=== PATIENT | female | born 1975 | race Caucasian/White ===

== ENCOUNTER 2018-05-02 12:50 | Observation (INO) | payer BC ==
--- NOTE | 2018-05-02 12:55 | EDM.PDOC ---
ED HPI GENERAL MEDICAL PROBLEM - General Chief Complaint: General Stated Complaint: CHEST PRESSURE Time Seen by Provider: 05/02/18 12:50 Source of Information: Reports: Patient, EMS, EMS Notes Reviewed. Denies: Old Records (No [facility] records available) History Limitations: Reports: No Limitations - History of Present Illness INITIAL COMMENTS - FREE TEXT/NARRATIVE: The patient was brought to the emergency room via basic ambulance transfer with the supervisor anodizing giving the patient 4 baby aspirin chew and swallow and applying O2 therapy. EKG was conducted in route, however multiple artifacts. The patient does not have any previous history of heart disease or cardiac workup. 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 The patient has been trying to lose weight and has been taking multiple OTC supplements. She has been in an exercise program for the last couple of months and did feel somewhat fatigued yesterday. No recent history of abdominal pain, heartburn, nausea, diarrhea, melena, gross hematochezia, or any food intolerance , including fatty foods, etc.. She denies any gross hematuria, colic, or other UTI symptoms. The patient also denies any recent fever, cough, wheezing, dyspnea , etc.. No history of recent headaches, visual changes, diplopia, change in mental status, or other change in neurological status. Her chest pain has improved to 6/10 at time of arrival to our facility. Onset: Today, Sudden Onset Date: 05/02/18 Onset Time: 11:30 - Related Data Allergies Allergy/AdvReac Type Severity Reaction Status Date / Time adhesive tape Allergy Rash Verified 05/02/18 13:43 morphine Allergy Itching Verified 05/02/18 13:43 Sulfa (Sulfonamide Allergy Nausea and Verified 05/02/18 13:02 Antibiotics) Vomiting venlafaxine [From Effexor] Allergy Nausea Verified 05/02/18 13:43 Home Meds: Home Meds Aspirin [Halfprin] 81 mg PO DAILY 05/02/18 [History] Cetirizine HCl [Zyrtec] 10 mg PO DAILY 05/02/18 [History] Cholecalciferol (Vitamin D3) [Vitamin D3] 1,000 unit PO DAILY 05/02/18 [History] Chrom Leatha/Brindal Arreguin [Garcinia Cambogia Tablet] 1 each PO BID 05/02/18 [ History] Sofiya [place]/Linoleic/Gamoleni [Evening [place] 1,000 mg Sftg] 1,000 mg PO DAILY 05/02/18 [History] Nonformulary 2 scoop PO DAILY 05/02/18 [History] Nonformulary Immune Booster 2 cap PO DAILY 05/02/18 [History] Polyethylene Glycol 3350 [MiraLAX] 17 gm PO DAILY 05/02/18 [History] Past Medical History HEENT History: Reports: Allergic Rhinitis, Impaired Vision, Other (See Below). Denies: Cataract, Glaucoma, Hard of Hearing, Macular Degeneration, Retinal Detachment Other HEENT History: Patient wears glasses. Seasonal allergies. Cardiovascular History: Reports: None. Denies: Afib, Aneurysm, Arrhythmia, Blood Clots/VTE/DVT, CAD, Heart Failure, Heart Murmur, High Cholesterol, Hypertension, PVD, Syncope Respiratory History: Reports: Bronchitis, Recurrent, Intubation, Previous. Denies: Asthma, COPD, PE, Pneumothorax, Sleep Apnea, TB Gastrointestinal History: Reports: Cholelithiasis, Chronic Constipation, GERD. Denies: Celiac Disease, Chronic Diarrhea, Colon Polyp, Diverticulosis, Fecal Incontinence, Gastritis, GI Bleed, Hepatitis, Inflammatory Bowel Disease, Irritable Bowel Syndrome, Jaundice, Pancreatitis, PUD Genitourinary History: Reports: None. Denies: Acute Renal Failure, Chronic Renal Insuffiency, Dialysis, Renal Calculus, Retention, Urinary, STD, Urinary Incontinence, UTI, Recurrent AWAKE OVERNIGHT MONITOR History: Reports: Polycystic Ovaries, , Spontaneous . Denies: Dysfunctional Uterine Bleeding, Endometriosis, Fibroids, Prolapsed Uterus : 5 Para: 4 LMP (Approximate): Other (See Below) Other OB/BYN History: Surgical menopause as below. First trimester SAB with D&C as below. Full term LTCS 2 with 2 deliveries at about 35 weeks gestation by with these events having respiratory problems and NICU care without other complications during pregnancies or deliveries. Musculoskeletal History: Reports: None. Denies: Amputation, Arthritis, Back Pain, Chronic, Fracture, Gout, Neck Pain, Chronic, Osteoarthritis, RA, SLE Neurological History: Reports: Concussion, Headaches, Chronic, Head Trauma, Other (See Below). Denies: Cerebral Aneurysms, CVA, Migraines, MS, Neuropathy, Peripheral, Parkinson's, Seizure, TIA Other Neuro History: Head concussion in about 2012 Psychiatric History: Reports: Anxiety, Depression, Psych Hospitalization(s), Suicidal Ideation (Psychiatric hospitalization for suicidal ideation at about age 29). Denies: Abuse, Victim of, ADD, ADHD, Addiction, PTSD, Suicide Attempt Endocrine/Metabolic History: Reports: Obesity/BMI 30+. Denies: Diabetes, Gestational, Diabetes, Type I, Diabetes, Type II, Diabetes Mellitus, Type 3c, IDDM Hematologic History: Reports: None. Denies: Anemia, Blood Transfusion(s), Iron Deficiency Immunologic History: Reports: None. Denies: AIDS, HIV, SLE Oncologic (Cancer) History: Reports: None. Denies: Basal Cell Carcinoma, Cervix , Hodgkin's Lymphoma, Leukemia, Lymphoma, Malignant Melanoma, Non-Hodgkin's Lymphoma, Ovarian, Squamous Cell Carcinoma, Uterine Dermatologic History: Reports: None, Eczema. Denies: Psoriasis - Infectious Disease History Infectious Disease History: Reports: Chicken Pox. Denies: C-Difficile, Measles , Meningitis, Mononucleosis, MRSA, Mumps, Pertussis (Whooping Cough), Rheumatic Fever, Rubella, Scarlet Fever, Shingles, TB, VRE - Past Surgical History Head Surgeries/Procedures: Reports: None HEENT Surgical History: Reports: Adenoidectomy, Naso-Sinus Surgery, Oral Surgery , Tonsillectomy, Other (See Below). Denies: Cataract Surgery, Eye Surgery, Laser Surgery, LASIK, Myringotomy w Tube(s) Other HEENT Surgeries/Procedures: Tonsillectomy at age 19. Septoplasty and sinus surgery in her mid 20s. [place] teeth extraction 4 at age 17. Cardiovascular Surgical History: Reports: None. Denies: Varicose Respiratory Surgical History: Reports: None. Denies: Thoracentesis GI Surgical History: Reports: Cholecystectomy, Colonoscopy, Hernia, Abdominal, Other (See Below). Denies: Appendectomy, EGD, Hernia, Inguinal, Hernia Repair/ Other, Polypectomy Other GI Surgeries/Procedures: Colonoscopy in August 2017. Laparoscopic cholecystectomy in August 2001. Umbilical hernia repair with hysterectomy in October 2006 Female Surgical History: Reports: Breast Biopsy, Breast Reconstruction, Section, D&C, Hysterectomy, Salpingo-Oophorectomy, Other (See Below). Denies: Tubal Ligation Other Female Surgeries/Procedures: LTCS 4 as above. Neurectomy with right- sided salpingo-oophorectomy in October 2006 secondary to uterine adhesions and bleeding from previous C-sections. Subsequent left-sided oophorectomy in about April 2007. D&C secondary to SAB as above. Bilateral breast reduction in January 2013 Endocrine Surgical History: Reports: None. Denies: Thyroid Biopsy Neurological Surgical History: Reports: None. Denies: C-Spine, Discectomy, Intracranial, Laminectomy, Lumbar Spine, Sacral Spine, Spinal Fusion, Thoracic Spine, Vertebroplasty Musculoskeletal Surgical History: Reports: None. Denies: Arthroscopic Procedure , Carpal Tunnel, Ganglion Cyst, Joint Replacement, ORIF Oncologic Surgical History: Reports: None Dermatological Surgical History: Reports: None - Past Imaging History Past Imaging History: Reports: Mammogram (Last in about 2004). Denies: Cardiac Echo, Stress Testing Social & Family History - Family History HEENT: Reports: Glaucoma, Other (See Below). Denies: Macular Degeneration, Retinal Detachment Other HEENT Family History: Maternal grandmother with glaucoma and macular degeneration in mother. Cardiac: Reports: Bypass, CAD, High Cholesterol, Hypertension, MA, Syncope, Other (See Below). Denies: Afib, Aneurysm, Arrhythmia, Blood Clots/VTE/DVT, Heart Failure, PVD/COD Other Cardiac Family History: Father with recurrent MIs initially in his 30s with multiple PTCA/stents and CABG additional history of hypertension and hyperlipidemia. Brother with recurrent syncope. Respiratory: Reports: COPD, Other (See Below). Denies: PE, Pneumothorax, Sleep Apnea Other Respiratory Family Hisory: Father with fatal COPD in his 60s with history of tobacco use. GI: Reports: None. Denies: Celiac Disease, Cholelithiasis, Colon Polyps, GERD, GI bleed, Inflammatory Bowel Disease, Irritable Bowel Syndrome, PUD : Reports: None. Denies: Dialysis, Renal Calculus, Renal Disease/ Insufficiency OBGYN: Reports: None. Denies: Endometriosis, Recurrent Spontaneous Musculoskeletal: Reports: None. Denies: Arthritis, Gout, Osteoarthritis, RA, SLE Neurological: Denies: Alzheimers Disease, Cerebral Aneurysms, CVA, Dementia, Migraines, MS, Neuropathy, Diabetic, Parkinson's, Seizure, TIA Endocrine/Metabolic: Reports: Diabetes, type II, Other (See Below). Denies: Diabetes, Type I, Diabetes Mellitus, Type 3c, Hypothyroidism, IDDM Other Endocrine/Metabolic Family History: Maternal and paternal grandmothers with AODM Hematologic: Reports: None. Denies: Anemia, SLE, Transfusion Reaction Immunologic: Reports: None. Denies: AIDS, HIV, SLE Dermatologic: Reports: Eczema, Other (See Below). Denies: Psoriasis Other Dermatologic Family History: Brother with eczema Oncologic: Reports: Bladder, Breast, Metastatic, Skin, Other (See Below). Denies: Cervix, Colon, Hodgkin's Lymphoma, Leukemia, Non-Hodgkin's Lymphoma, Ovarian, Prostate, Uterine Other Oncologic Family History: Maternal grandmother with melanoma, breast cancer, and bladder cancer with metastases fatal in her 80s. Maternal aunt breast cancer in her 40s and mother with breast cancer in her 50s. Father with bladder cancer in his 50s. - Tobacco Use Smoking Status *Q: Former Smoker Tobacco Use Within Last Twelve Months: No Years of Tobacco use: 10 Packs/Tins Daily: 1 Packs/Tins Daily Comment: She smoked 1-1 1/2 packs of cigarettes per day between ages 31 and 41 with no use since 06/18/17 Used Tobacco, but Quit: Yes Smoking Cessation Information Provided To Patient: No Smoking Cessation Information Given Comment: chews tobacco Second Hand Smoke Exposure: Yes Second Hand Smoke Education Provided: Yes - Caffeine Use Caffeine Use: Reports: Coffee (1-2 cups per day). Denies: Energy Drinks, Soda, Tea - Alcohol Use Alcohol Use History: Yes Days Per Week of Alcohol Use: 0 Number of Drinks Per Day: 1 Number of Drinks Per Day Comment: Usually one glass of wine on a monthly basis. No previous DWIs, problems with alcohol abuse, etc. 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 ED EXAM, GENERAL - Physical Exam Exam: See Below Exam Limited By: No Limitations General Appearance: Alert, WD/WN, No Apparent Distress, Anxious (Moderate) Eye Exam: Bilateral Eye: EOMI, Normal Inspection (No nystagmus), PERRL Ears: Normal External Exam, Normal Canal, Hearing Grossly Normal, Normal TMs Nose: Normal Inspection, Normal Mucosa, No Blood Throat/Mouth: Normal Inspection, Normal Lips, Normal Teeth, Normal Gums, Normal Oropharynx, Normal Voice, No Airway Compromise. No: Dysphagia, Perioral Cyanosis Head: Atraumatic, Normocephalic. No: Facial Swelling, Facial Tenderness, Sinus Tenderness Neck: Normal Inspection, Supple, Non-Tender, Full Range of Motion. No: Carotid Bruit, Lymphadenopathy (L), Lymphadenopathy (R), Thyromegaly Respiratory/Chest: No Respiratory Distress, Lungs Clear, Normal Breath Sounds, No Accessory Muscle Use, Chest Non-Tender. No: Pleural Rub, Retractions Cardiovascular: Normal Peripheral Pulses, No Edema, No Gallop, No JVD, No Murmur , No Rub, Bradycardia (Mild to moderate, regular rhythm). No: Gallop/S3, Gallop /S4, Friction Rub Peripheral Pulses: 4+: Radial (L), Radial (R), Dorsalis Pedis (L), Dorsalis Pedis (R) GI/Abdominal: Normal Bowel Sounds, Soft, Non-Tender, No Organomegaly, No Distention, No Abnormal Bruit, No Mass, Pelvis Stable, Other (obese). No: Guarding (Female) Exam: Deferred Rectal (Female) Exam: Deferred Back Exam: Normal Inspection, Full Range of Motion. No: CVA Tenderness (L), CVA Tenderness (R), Muscle Spasm Extremities: Normal Inspection, Normal Range of Motion, Non-Tender, No Pedal Edema, Normal Capillary Refill. No: Noe's Sign Neurological: Alert, Oriented, CN II-XII Intact, Normal Cognition, Normal Gait, Normal Reflexes (Negative Babinski's), No Motor/Sensory Deficits Psychiatric: Anxious (Moderate), Depressed Mood (Mild; Adequate eye contact) Skin Exam: Warm, Dry, Intact, Normal Color, No Rash, Stud(s) (Bilateral auricular, left nasal). No: Diaphoretic, Ecchymosis, Petechiae, Wound/Incision Lymphatic: No Adenopathy EKG INTERPRETATION EKG Date: 05/02/18 Time: 12:49 Rhythm: Other (Sinus bradycardia) Rate (Beats/Min): 52 [place]: Normal (Left cardiac axis) P-Wave: Present (Mild diffuse biphasic P waves with extreme poor R-wave progression in the anterior leads) QRS: Wide (QRS interval 0.10 seconds representing repolarization changes with T- wave inversion in leads 3 and V1) ST-T: Normal QT: Normal MO/PQ Interval: 0.16 seconds Comparison: NA - No Prior EKG EKG Interpretation Comments: 1. No acute ischemic changes 2. Repolarization changes Course - Vital Signs Last Recorded V/S: Last Vital Signs Temp 37.3 C 05/02/18 12:50 Pulse 53 L 05/02/18 14:10 Resp 13 05/02/18 14:10 BP 105/60 05/02/18 14:10 Pulse Ox 100 05/02/18 14:10 Vital Signs - 24 hr 05/02/18 05/02/18 05/02/18 12:50 12:55 12:56 Temperature [ 37.3 C Temporal] Pulse, 55 L 55 L Peripheral [ Pulse Oximetry] Respiratory 17 16 Rate Blood Pressure 109/78 105/68 [Left Upper Arm ] O2 Sat by Pulse 98 98 Oximetry O2 Sat by Pulse 100 Oximetry [ Nasal Cannula] 05/02/18 05/02/18 05/02/18 13:10 13:25 13:40 Temperature [ Temporal] Pulse, 52 L 52 L 51 L Peripheral [ Pulse Oximetry] Respiratory 15 16 15 Rate Blood Pressure 107/75 99/54 L 99/62 [Left Upper Arm ] O2 Sat by Pulse 100 99 100 Oximetry O2 Sat by Pulse Oximetry [ Nasal Cannula] 05/02/18 05/02/18 13:55 14:10 Temperature [ Temporal] Pulse, 57 L 53 L Peripheral [ Pulse Oximetry] Respiratory 14 13 Rate Blood Pressure 105/66 105/60 [Left Upper Arm ] O2 Sat by Pulse 100 100 Oximetry O2 Sat by Pulse Oximetry [ Nasal Cannula] - Orders/Labs/Meds Orders: Active Orders 24 hr Category Date Time Status Cardiac Monitoring [RC] . DIRECTED Care 05/02/18 12:56 Active EKG Documentation Completion [RC] ASDIRECTED Care 05/02/18 12:56 Active Oxygen Therapy, ED [RC] CONTINUOUS Care 05/02/18 12:56 Active Peripheral IV Care [RC] . DIRECTED Care 05/02/18 12:56 Active Pulse Oximetry [RC] CONTINUOUS Care 05/02/18 12:56 Active Up With Assistance [RC] PFP Care 05/02/18 12:56 Active Vital Signs [RC] PFP Care 05/02/18 12:56 Active Nothing per Oral Now Diet [DIET] Diet 05/02/18 Breakfast Active Chest 1V Frontal [CR] Stat Exams 05/02/18 12:56 Taken Sodium Chloride 0.9% [Saline Flush] Med 05/02/18 12:56 Active 10 ml FLUSH ASDIRECTED PRN Obtain Past Medical Record [OM.PC] Urgent Oth 05/02/18 12:56 Active Peripheral IV Insertion Adult [OM.PC] Stat Oth 05/02/18 12:56 Ordered Resuscitation Status Stat Resus Stat 05/02/18 12:56 Ordered Medication Orders Sodium Chloride (Saline Flush) 10 ml FLUSH ASDIRECTED PRN PRN Reason: Keep Vein Open Last Admin: 05/02/18 13:17 Dose: 10 ml Labs: Laboratory Tests 05/02/18 05/02/18 05/02/18 Range/Units 13:00 13:00 13:00 WBC 7.2 (4.0-10.2) K/uL RBC 4.77 (3.77-5.09) M/uL Hgb 13.5 (11.7-15.5) g/dL Hct 40.8 (34.0-46.0) % MCV 85.5 (84.0-98.0) fL MCH 28.3 (28.2-33.3) pg MCHC 33.1 (31.7-36.0) g/dL RDW 13.0 (11.2-14.1) % Plt Count 163 (150-350) K/uL Neut % (Auto) 51.3 (45.0-80.0) % Lymph % (Auto) 38.2 (10.0-50.0) % Sebastian % (Auto) 8.1 (2.0-14.0) % Eos % (Auto) 2.1 (0.0-5.0) % Baso % (Auto) 0.3 (0.0-2.0) % Neut # (Auto) 3.70 (1.40-7.00) K/uL Lymph # (Auto) 2.75 (0.50-3.50) K/uL Sebastian # (Auto) 0.58 (0.00-1.00) K/uL Eos # (Auto) 0.15 (0.00-0.50) K/uL Baso # (Auto) 0.02 (0.00-0.20) K/uL PT 11.4 (9.8-11.7) SEC INR 1.1 APTT 26.0 (22.1-29.8) SEC D-Dimer, Quantitative < 100 (0-400) ng/mL Sodium (136-145) mmol/L Potassium (3.5-5.1) mmol/L Chloride (98-107) mmol/L Carbon Dioxide (21.0-32.0) mmol/L BUN (7-18) mg/dL Creatinine (0.51-1.17) mg/dL Est Cr Clr Drug Dosing Estimated GFR (MDRD) mL/min Glucose (74-106) mg/dL Lactic Acid (0.4-2.0) mmol/L Uric Acid (2.6-7.2) mg/dL Calcium (8.5-10.1) mg/dL Magnesium (1.8-2.4) mg/dL Total Bilirubin (0.2-1.0) mg/dL AST (15-37) U/L ALT (12-78) U/L Alkaline Phosphatase (46-116) IU/L Creatine Kinase (26-308) U/L Creatine Kinase Index (0.0-2.5) % CK-MB (CK-2) (0.00-3.60) ng/mL Troponin I (0.000-0.056) ng/mL NT-Pro-B Natriuret Pep (0-125) pg/mL Total Protein (6.4-8.2) g/dL Albumin (3.4-5.0) g/dL TSH, Ultra Sensitive (0.358-3.740) mIU/mL 05/02/18 05/02/18 Range/Units 13:00 13:00 WBC (4.0-10.2) K/uL RBC (3.77-5.09) M/uL Hgb (11.7-15.5) g/dL Hct (34.0-46.0) % MCV (84.0-98.0) fL MCH (28.2-33.3) pg MCHC (31.7-36.0) g/dL RDW (11.2-14.1) % Plt Count (150-350) K/uL Neut % (Auto) (45.0-80.0) % Lymph % (Auto) (10.0-50.0) % Sebastian % (Auto) (2.0-14.0) % Eos % (Auto) (0.0-5.0) % Baso % (Auto) (0.0-2.0) % Neut # (Auto) (1.40-7.00) K/uL Lymph # (Auto) (0.50-3.50) K/uL Sebastian # (Auto) (0.00-1.00) K/uL Eos # (Auto) (0.00-0.50) K/uL Baso # (Auto) (0.00-0.20) K/uL PT (9.8-11.7) SEC INR APTT (22.1-29.8) SEC D-Dimer, Quantitative (0-400) ng/mL Sodium 141 (136-145) mmol/L Potassium 3.9 (3.5-5.1) mmol/L Chloride 105 (98-107) mmol/L Carbon Dioxide 27.7 (21.0-32.0) mmol/L BUN 21 H (7-18) mg/dL Creatinine 0.79 (0.51-1.17) mg/dL Est Cr Clr Drug Dosing TNP Estimated GFR (MDRD) > 60 mL/min Glucose 95 (74-106) mg/dL Lactic Acid 0.9 (0.4-2.0) mmol/L Uric Acid 3.6 (2.6-7.2) mg/dL Calcium 9.0 (8.5-10.1) mg/dL Magnesium 1.9 (1.8-2.4) mg/dL Total Bilirubin 0.3 (0.2-1.0) mg/dL AST 27 (15-37) U/L ALT 32 (12-78) U/L Alkaline Phosphatase 47 (46-116) IU/L Creatine Kinase 223 (26-308) U/L Creatine Kinase Index 1.2 (0.0-2.5) % CK-MB (CK-2) 2.60 (0.00-3.60) ng/mL Troponin I 0.000 (0.000-0.056) ng/mL NT-Pro-B Natriuret Pep 58 (0-125) pg/mL Total Protein 7.5 (6.4-8.2) g/dL Albumin 3.8 (3.4-5.0) g/dL TSH, Ultra Sensitive 1.908 (0.358-3.740) mIU/mL Meds: Medications Generic Name Dose Route Start Last Admin Trade Name Freq PRN Reason Stop Dose Admin Sodium Chloride 10 ml 05/02/18 12:56 05/02/18 13:17 Saline Flush FLUSH 10 ml ASDIRECTED PRN Administration Keep Vein Open Discontinued Medications Generic Name Dose Route Start Last Admin Trade Name Freq PRN Reason Stop Dose Admin Famotidine 40 mg 05/02/18 12:56 05/02/18 13:05 Pepcid IVPUSH 05/02/18 12:57 40 mg ONETIME ONE Administration Ticagrelor 180 mg 05/02/18 12:56 05/02/18 13:05 Brilinta PO 05/02/18 12:57 180 mg ONETIME ONE Administration - Radiology Interpretation Free Text/Narrative:: 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 with average heart rate in the mid-50s. Chest x-ray, portable, shows evidence of mild pulmonary obstructive disease and elevated right hemidiaphragm with no evidence of cardiomegaly, CHF, pulmonary infiltrates, pneumothorax, etc. Departure - Departure Time of Disposition: 14:30 Disposition: Refer to Observation Condition: Good Clinical Impression: Bradycardia, Mixed anxiety depressive disorder, Obesity (BMI 30-39.9), Tobacco abuse counseling, Peptic reflux disease Chest pain Qualifiers: Chest pain type: unspecified Qualified Code(s): R07.9 - Chest pain, unspecified COPD (chronic obstructive pulmonary disease) Qualifiers: COPD type: emphysema Emphysema type: panlobular Qualified Code(s): J43.1 - Panlobular emphysema - Discharge Information Forms: ED Department Discharge Care Plan Goals: See plan - Problem List & Annotations (1) Chest pain SNOMED Code(s): 10521804 Code(s): R07.9 - CHEST PAIN, UNSPECIFIED Status: Acute Priority: High Onset Date: 05/02/18 Annotation/Comment:: Chest pain protocol initiated immediately upon the patient's arrival to this facility. Initiate standard rule out MA orders with cardiology consultation depending on her clinical course. Consider cardiology stress test on an outpatient basis. Note the patient appears to be mildly symptomatic when she has moderate bradycardia. The patient' s was given a [employer] work excuse. Qualifiers: Chest pain type: unspecified Qualified Code(s): R07.9 - Chest pain, unspecified (2) Bradycardia SNOMED Code(s): 53988769 Code(s): R00.1 - BRADYCARDIA, UNSPECIFIED Status: Acute Priority: High Onset Date: 05/02/18 Annotation/Comment:: Moderate bradycardia as above. Possibility of inferior wall cardiac ischemia, however negative cardiac enzymes and EKG findings as above. Patient is not taking any medications or supplements , which would explain her bradycardia. Some mild hypotension secondary to her bradycardia. Continue to observe closely for now. (3) Mixed anxiety depressive disorder SNOMED Code(s): 635472371 Code(s): F41.8 - OTHER SPECIFIED ANXIETY DISORDERS Status: Chronic Priority: Medium Annotation/Comment:: Under moderate control during today's evaluation. Patient may benefit from reinitiation of medical therapy, counseling , etc. (4) Obesity (BMI 30-39.9) SNOMED Code(s): 544913591, 289200668 Code(s): E66.9 - OBESITY, UNSPECIFIED Status: Chronic Priority: Medium Annotation/Comment:: She is trying to lose weight, however her physical conditioning to this point would not explain her bradycardia. Fasting lipid profile and glycosylated hemoglobin to be conducted in the a.m. (5) COPD (chronic obstructive pulmonary disease) SNOMED Code(s): 51417905 Code(s): J44.9 - CHRONIC OBSTRUCTIVE PULMONARY DISEASE, UNSPECIFIED Status : Acute Priority: Medium Onset Date: 05/02/18 Annotation/Comment:: COPD by today's chest x-ray. Note previous history of tobacco use. Consider PFTs once her cardiac status has been determined. Qualifiers: COPD type: emphysema Emphysema type: panlobular Qualified Code(s): J43.1 - Panlobular emphysema (6) Peptic reflux disease SNOMED Code(s): 577354747 Code(s): K21.9 - GASTRO-ESOPHAGEAL REFLUX DISEASE WITHOUT ESOPHAGITIS Status: Chronic Priority: Medium Annotation/Comment:: No recent history of significant heartburn, etc. High-dose IV Pepcid given as GI prophylaxis. (7) Tobacco abuse counseling SNOMED Code(s): 602429499, 496632220, 941367933 Code(s): Z71.6 - TOBACCO ABUSE COUNSELING Status: Chronic Priority: Medium Annotation/Comment:: The patient was congratulated about stopping smoking one year ago. Her does chew tobacco. Tobacco cessation information to be provided at time of hospital discharge. Patient's was counseled concerning the use of Nicorette gum during today's emergency room evaluation. - Problem List Review Problem List Initiated/Reviewed/Updated: Yes - My Orders Last 24 Hours: My Active Orders 05/02/18 12:56 Cardiac Monitoring [RC] . DIRECTED EKG Documentation Completion [RC] ASDIRECTED Oxygen Therapy, ED [RC] CONTINUOUS Peripheral IV Care [RC] . DIRECTED Pulse Oximetry [RC] CONTINUOUS Up With Assistance [RC] PFP Vital Signs [RC] PFP Chest 1V Frontal [CR] Stat Sodium Chloride 0.9% [Saline Flush] 10 ml FLUSH ASDIRECTED PRN Obtain Past Medical Record [OM.PC] Urgent Peripheral IV Insertion Adult [OM.PC] Stat Resuscitation Status Stat 05/02/18 Breakfast Nothing per Oral Now Diet [DIET] - Assessment/Plan Admission H&P: Please use this note as an admission H&P Last 24 Hours: My Active Orders 05/02/18 12:56 Cardiac Monitoring [RC] . DIRECTED EKG Documentation Completion [RC] ASDIRECTED Oxygen Therapy, ED [RC] CONTINUOUS Peripheral IV Care [RC] . DIRECTED Pulse Oximetry [RC] CONTINUOUS Up With Assistance [RC] PFP Vital Signs [RC] PFP Chest 1V Frontal [CR] Stat Sodium Chloride 0.9% [Saline Flush] 10 ml FLUSH ASDIRECTED PRN Obtain Past Medical Record [OM.PC] Urgent Peripheral IV Insertion Adult [OM.PC] Stat Resuscitation Status Stat 05/02/18 Breakfast Nothing per Oral Now Diet [DIET] Assessment:: As above Plan: As above. Extensive precautions were given to the patient and her , Franko , who are in agreement with the treatment plan. The patient's condition is stable enough for observation status and general supervision.
[2018-05-02] MEDS ORDERED: Famotidine 20 MG/2 ML SDV IVPUSH ONE (12:56)
[2018-05-02] MEDS ORDERED: Sodium Chloride 0.9% 10 ML Syringe FLUSH PRN ×2 (12:56→14:38)
[2018-05-02] MEDS ORDERED: Ticagrelor 90 MG Tab PO ONE (12:56)
[2018-05-02 13:36] LABS: CHLORIDE,CL 105 mmol/L (98-107); SODIUM,NA 141 mmol/L (136-145)
[2018-05-02] MEDS ORDERED: Temazepam 15 MG Cap PO PRN (14:38)
[2018-05-02] MEDS ORDERED: Acetaminophen 325 MG Tab PO PRN (15:00)
[2018-05-02] MEDS ORDERED: Lactated Ringers 1,000 ML IV ONE (15:47)
[2018-05-02] MEDS ORDERED: Triamcinolone Acetonide 0.1% Crm 15 GM Tube TOP SCH (18:00)
[2018-05-02] MEDS: Lactated Ringers 1,000 ML IV SCH (18:57)
[2018-05-02] MEDS ORDERED: Cetirizine 10 MG Tab PO SCH (23:15)
[2018-05-03] MEDS ORDERED: Lactated Ringers 1,000 ML IV ONE (04:36)
--- NOTE | 2018-05-03 04:39 | PCM.SN ---
- Free Text/Narrative Note: Patient is somewhat hypotensive despite previous 1 L IV bolus of lactated Ringer 's and current lactated Ringer's at 100 ml/hour. No anginal complaints at this time, however systolic blood pressures now in the 80s. Initiate an additional 1 L IV bolus of lactated Ringer's with further continuation of IV fluids at the same rate as before. Continue to observe symptoms closely. Vitals will be changed back to an every 2 hours basis. Patient is still somewhat bradycardic in the 50s at this time. Consider cardiology consultation and/or transfer to [facility] later this morning depending on her clinical course.
[2018-05-03] MEDS: Lactated Ringers 1,000 ML IV SCH (05:39)
[2018-05-03 07:49] LABS: CHLORIDE,CL 110 mmol/L (98-107); SODIUM,NA 144 mmol/L (136-145)
[2018-05-03] MEDS ORDERED: Polyethylene Glycol 3350 Powder 17 GM Packet PO SCH (08:00)
[2018-05-03] MEDS ORDERED: Cetirizine 10 MG Tab PO SCH (08:00)
[2018-05-03] MEDS ORDERED: Aspirin 81 MG Tab.EC PO SCH (08:00)
--- NOTE | 2018-05-03 10:14 | PCM.DCSUM1 ---
Discharge Summary - Hospital Course Free Text/Narrative:: patient is a 42-year-old who was brought into the ER via basic ambulance with chief complaint of chest pain stating it was a 10 out of 10 at that time, it was noted that her blood pressure was on the lower side of normal and her pulse was between 40 and 60 patient was admitted to the hospital troponins 2 done both negative but patient still having chest discomfort there is no EKG change smost of the chest discomfort is left mid thoracic below the breasts and at times the pain radiates into the axilla a d-dimer was obtained which was negative. Also TSH was within normal limits at this time we cannot offer further workupso we will transfer to [facility]. - Discharge Data Discharge Date: 05/03/18 Discharge Disposition: DC/Tfer to [facility] Condition: Stable - Patient Instructions Diet: Heart Healthy Diet - Discharge Plan Home Medications: Home Meds Aspirin [Halfprin] 81 mg PO DAILY 05/02/18 [History] Cetirizine HCl [Zyrtec] 10 mg PO BEDTIME 05/02/18 [History] Cholecalciferol (Vitamin D3) [Vitamin D3] 1,000 unit PO DAILY 05/02/18 [History] Chrom Leatha/Brindal Arreguin [Garcinia Cambogia Tablet] 1 each PO BID 05/02/18 [ History] Sofiya [place]/Linoleic/Gamoleni [Evening [place] 1,000 mg Sftg] 1,000 mg PO DAILY 05/02/18 [History] Nonformulary 2 scoop PO DAILY 05/02/18 [History] Nonformulary Immune Booster 2 cap PO DAILY 05/02/18 [History] Polyethylene Glycol 3350 [MiraLAX] 17 gm PO DAILY 05/02/18 [History] Triamcinolone Acetonide [Triamcinolone Acetonide 0.1% Crm] 1 applic TOP BID 06/12 [History] Forms: ED Department Discharge Referrals: Tao Lara PA-C [Primary Care Provider] - - General Info Date of Service: 05/03/18 - Review of Systems General: Reports: Fatigue HEENT: Reports: No Symptoms Pulmonary: Reports: No Symptoms Cardiovascular: Reports: Chest Pain Gastrointestinal: Reports: No Symptoms Genitourinary: Reports: No Symptoms Musculoskeletal: Reports: No Symptoms Neurological: Reports: No Symptoms Psychiatric: Reports: Agitation - Patient Data Vitals - Most Recent: Last Vital Signs Temp 97.7 F 05/03/18 06:00 Pulse 56 L 05/03/18 08:00 Resp 16 05/03/18 08:00 BP 92/62 05/03/18 08:00 Pulse Ox 96 05/03/18 08:00 Weight - Most Recent: 185 lb 6 oz I&O - Last 24 hours: Intake & Output 05/02/18 05/03/18 05/03/18 22:59 06:59 14:59 Intake Total 200 2956 Output Total 300 350 Balance -100 2606 Lab Results - Last 24 hrs: Laboratory Results - last 24 hr 05/02/18 05/02/18 05/02/18 Range/Units 13:00 13:00 13:00 WBC 7.2 (4.0-10.2) K/uL RBC 4.77 (3.77-5.09) M/uL Hgb 13.5 (11.7-15.5) g/dL Hct 40.8 (34.0-46.0) % MCV 85.5 (84.0-98.0) fL MCH 28.3 (28.2-33.3) pg MCHC 33.1 (31.7-36.0) g/dL RDW 13.0 (11.2-14.1) % Plt Count 163 (150-350) K/uL Neut % (Auto) 51.3 (45.0-80.0) % Lymph % (Auto) 38.2 (10.0-50.0) % [place] % (Auto) 8.1 (2.0-14.0) % Eos % (Auto) 2.1 (0.0-5.0) % Baso % (Auto) 0.3 (0.0-2.0) % Neut # (Auto) 3.70 (1.40-7.00) K/uL Lymph # (Auto) 2.75 (0.50-3.50) K/uL [place] # (Auto) 0.58 (0.00-1.00) K/uL Eos # (Auto) 0.15 (0.00-0.50) K/uL Baso # (Auto) 0.02 (0.00-0.20) K/uL PT 11.4 (9.8-11.7) SEC INR 1.1 APTT 26.0 (22.1-29.8) SEC D-Dimer, Quantitative < 100 (0-400) ng/mL Sodium (136-145) mmol/L Potassium (3.5-5.1) mmol/L Chloride (98-107) mmol/L Carbon Dioxide (21.0-32.0) mmol/L BUN (7-18) mg/dL Creatinine (0.51-1.17) mg/dL Est Cr Clr Drug Dosing Estimated GFR (MDRD) mL/min Glucose (74-106) mg/dL Hemoglobin A1c (4.3-5.7) % Lactic Acid (0.4-2.0) mmol/L Uric Acid (2.6-7.2) mg/dL Calcium (8.5-10.1) mg/dL Magnesium (1.8-2.4) mg/dL Total Bilirubin (0.2-1.0) mg/dL AST (15-37) U/L ALT (12-78) U/L Alkaline Phosphatase (46-116) IU/L Creatine Kinase (26-308) U/L Creatine Kinase Index (0.0-2.5) % CK-MB (CK-2) (0.00-3.60) ng/mL Troponin I (0.000-0.056) ng/mL NT-Pro-B Natriuret Pep (0-125) pg/mL Total Protein (6.4-8.2) g/dL Albumin (3.4-5.0) g/dL Triglycerides (30-150) mg/dL Cholesterol (100-200) mg/dL LDL Cholesterol, Calc (0-100) mg/dL HDL Cholesterol (40-60) mg/dL TSH, Ultra Sensitive (0.358-3.740) mIU/mL 05/02/18 05/02/18 05/02/18 Range/Units 13:00 13:00 17:05 WBC (4.0-10.2) K/uL RBC (3.77-5.09) M/uL Hgb (11.7-15.5) g/dL Hct (34.0-46.0) % MCV (84.0-98.0) fL MCH (28.2-33.3) pg MCHC (31.7-36.0) g/dL RDW (11.2-14.1) % Plt Count (150-350) K/uL Neut % (Auto) (45.0-80.0) % Lymph % (Auto) (10.0-50.0) % [place] % (Auto) (2.0-14.0) % Eos % (Auto) (0.0-5.0) % Baso % (Auto) (0.0-2.0) % Neut # (Auto) (1.40-7.00) K/uL Lymph # (Auto) (0.50-3.50) K/uL [place] # (Auto) (0.00-1.00) K/uL Eos # (Auto) (0.00-0.50) K/uL Baso # (Auto) (0.00-0.20) K/uL PT (9.8-11.7) SEC INR APTT (22.1-29.8) SEC D-Dimer, Quantitative (0-400) ng/mL Sodium 141 (136-145) mmol/L Potassium 3.9 (3.5-5.1) mmol/L Chloride 105 (98-107) mmol/L Carbon Dioxide 27.7 (21.0-32.0) mmol/L BUN 21 H (7-18) mg/dL Creatinine 0.79 (0.51-1.17) mg/dL Est Cr Clr Drug Dosing TNP Estimated GFR (MDRD) > 60 mL/min Glucose 95 (74-106) mg/dL Hemoglobin A1c (4.3-5.7) % Lactic Acid 0.9 (0.4-2.0) mmol/L Uric Acid 3.6 (2.6-7.2) mg/dL Calcium 9.0 (8.5-10.1) mg/dL Magnesium 1.9 (1.8-2.4) mg/dL Total Bilirubin 0.3 (0.2-1.0) mg/dL AST 27 (15-37) U/L ALT 32 (12-78) U/L Alkaline Phosphatase 47 (46-116) IU/L Creatine Kinase 223 191 (26-308) U/L Creatine Kinase Index 1.2 1.2 (0.0-2.5) % CK-MB (CK-2) 2.60 2.20 (0.00-3.60) ng/mL Troponin I 0.000 0.000 (0.000-0.056) ng/mL NT-Pro-B Natriuret Pep 58 (0-125) pg/mL Total Protein 7.5 (6.4-8.2) g/dL Albumin 3.8 (3.4-5.0) g/dL Triglycerides (30-150) mg/dL Cholesterol (100-200) mg/dL LDL Cholesterol, Calc (0-100) mg/dL HDL Cholesterol (40-60) mg/dL TSH, Ultra Sensitive 1.908 (0.358-3.740) mIU/mL 05/02/18 05/03/18 05/03/18 Range/Units 22:50 07:11 07:11 WBC 6.2 (4.0-10.2) K/uL RBC 4.31 (3.77-5.09) M/uL Hgb 12.3 (11.7-15.5) g/dL Hct 37.4 (34.0-46.0) % MCV 86.8 (84.0-98.0) fL MCH 28.5 (28.2-33.3) pg MCHC 32.9 (31.7-36.0) g/dL RDW 13.1 (11.2-14.1) % Plt Count 151 (150-350) K/uL Neut % (Auto) 49.9 (45.0-80.0) % Lymph % (Auto) 38.7 (10.0-50.0) % [place] % (Auto) 8.5 (2.0-14.0) % Eos % (Auto) 2.6 (0.0-5.0) % Baso % (Auto) 0.3 (0.0-2.0) % Neut # (Auto) 3.11 (1.40-7.00) K/uL Lymph # (Auto) 2.41 (0.50-3.50) K/uL [place] # (Auto) 0.53 (0.00-1.00) K/uL Eos # (Auto) 0.16 (0.00-0.50) K/uL Baso # (Auto) 0.02 (0.00-0.20) K/uL PT (9.8-11.7) SEC INR APTT (22.1-29.8) SEC D-Dimer, Quantitative (0-400) ng/mL Sodium 144 (136-145) mmol/L Potassium 3.9 (3.5-5.1) mmol/L Chloride 110 H (98-107) mmol/L Carbon Dioxide 26.4 (21.0-32.0) mmol/L BUN 15 (7-18) mg/dL Creatinine 0.73 (0.51-1.17) mg/dL Est Cr Clr Drug Dosing 72.85 Estimated GFR (MDRD) > 60 mL/min Glucose 85 (74-106) mg/dL Hemoglobin A1c (4.3-5.7) % Lactic Acid (0.4-2.0) mmol/L Uric Acid (2.6-7.2) mg/dL Calcium 8.6 (8.5-10.1) mg/dL Magnesium (1.8-2.4) mg/dL Total Bilirubin 0.4 (0.2-1.0) mg/dL AST 20 (15-37) U/L ALT 23 (12-78) U/L Alkaline Phosphatase 39 L (46-116) IU/L Creatine Kinase 159 129 (26-308) U/L Creatine Kinase Index 1.0 1.0 (0.0-2.5) % CK-MB (CK-2) 1.60 1.30 (0.00-3.60) ng/mL Troponin I 0.001 0.000 (0.000-0.056) ng/mL NT-Pro-B Natriuret Pep 123 (0-125) pg/mL Total Protein 5.9 L (6.4-8.2) g/dL Albumin 2.9 L (3.4-5.0) g/dL Triglycerides 39 (30-150) mg/dL Cholesterol 143 (100-200) mg/dL LDL Cholesterol, Calc 86 (0-100) mg/dL HDL Cholesterol 49 (40-60) mg/dL TSH, Ultra Sensitive (0.358-3.740) mIU/mL 05/03/18 Range/Units 07:11 WBC (4.0-10.2) K/uL RBC (3.77-5.09) M/uL Hgb (11.7-15.5) g/dL Hct (34.0-46.0) % MCV (84.0-98.0) fL MCH (28.2-33.3) pg MCHC (31.7-36.0) g/dL RDW (11.2-14.1) % Plt Count (150-350) K/uL Neut % (Auto) (45.0-80.0) % Lymph % (Auto) (10.0-50.0) % [place] % (Auto) (2.0-14.0) % Eos % (Auto) (0.0-5.0) % Baso % (Auto) (0.0-2.0) % Neut # (Auto) (1.40-7.00) K/uL Lymph # (Auto) (0.50-3.50) K/uL [place] # (Auto) (0.00-1.00) K/uL Eos # (Auto) (0.00-0.50) K/uL Baso # (Auto) (0.00-0.20) K/uL PT (9.8-11.7) SEC INR APTT (22.1-29.8) SEC D-Dimer, Quantitative (0-400) ng/mL Sodium (136-145) mmol/L Potassium (3.5-5.1) mmol/L Chloride (98-107) mmol/L Carbon Dioxide (21.0-32.0) mmol/L BUN (7-18) mg/dL Creatinine (0.51-1.17) mg/dL Est Cr Clr Drug Dosing Estimated GFR (MDRD) mL/min Glucose (74-106) mg/dL Hemoglobin A1c 5.5 (4.3-5.7) % Lactic Acid (0.4-2.0) mmol/L Uric Acid (2.6-7.2) mg/dL Calcium (8.5-10.1) mg/dL Magnesium (1.8-2.4) mg/dL Total Bilirubin (0.2-1.0) mg/dL AST (15-37) U/L ALT (12-78) U/L Alkaline Phosphatase (46-116) IU/L Creatine Kinase (26-308) U/L Creatine Kinase Index (0.0-2.5) % CK-MB (CK-2) (0.00-3.60) ng/mL Troponin I (0.000-0.056) ng/mL NT-Pro-B Natriuret Pep (0-125) pg/mL Total Protein (6.4-8.2) g/dL Albumin (3.4-5.0) g/dL Triglycerides (30-150) mg/dL Cholesterol (100-200) mg/dL LDL Cholesterol, Calc (0-100) mg/dL HDL Cholesterol (40-60) mg/dL TSH, Ultra Sensitive (0.358-3.740) mIU/mL [facility] Results - Last 24 hrs: Microbiology 05/02/18 19:00 Stool Occult Blood (OSCAR) - Final Stool / Feces NEGATIVE OCCULT BLOOD Med Orders - Current: Current Medications Acetaminophen (Tylenol) 650 mg PO Q4H PRN PRN Reason: Pain Aspirin (Halfprin) 81 mg PO DAILY [facility] Cetirizine HCl (Zyrtec) 10 mg PO BEDTIME [facility] Last Admin: 05/02/18 23:29 Dose: 10 mg Lactated Ringer's (Ringers, Lactated) 1,000 mls @ 100 mls/hr IV ASDIRECTED RUY Last Admin: 05/03/18 05:39 Dose: 100 mls/hr Polyethylene Glycol (Miralax) 17 gm PO DAILY [facility] Sodium Chloride (Saline Flush) 10 ml FLUSH ASDIRECTED PRN PRN Reason: Keep Vein Open Last Admin: 05/02/18 13:17 Dose: 10 ml Sodium Chloride (Saline Flush) 10 ml FLUSH Q12HR PRN PRN Reason: Keep Vein Open Temazepam (Restoril) 15 mg PO BEDTIME PRN PRN Reason: Insomnia Triamcinolone Acetonide (Triamcinolone Acetonide 0.1% Crm) 0 gm TOP BID [facility] Last Admin: 05/02/18 18:57 Dose: Not Given Discontinued Medications Cetirizine HCl (Zyrtec) 10 mg PO DAILY [facility] Famotidine (Pepcid) 40 mg IVPUSH ONETIME ONE Stop: 05/02/18 12:57 Last Admin: 05/02/18 13:05 Dose: 40 mg Lactated Ringer's (Ringers, Lactated) 1,000 mls @ 999 mls/hr IV .BOLUS ONE Stop: 05/02/18 16:47 Last Admin: 05/02/18 17:30 Dose: 999 mls/hr Lactated Ringer's (Ringers, Lactated) 1,000 mls @ 999 mls/hr IV .BOLUS ONE Stop: 05/03/18 05:36 Last Admin: 05/03/18 04:36 Dose: 999 mls/hr Ticagrelor (Brilinta) 180 mg PO ONETIME ONE Stop: 05/02/18 12:57 Last Admin: 05/02/18 13:05 Dose: 180 mg - Exam General: Reports: Alert, Oriented HEENT: Reports: Pupils Equal, Pupils Reactive, EOMI, Mucous Membr. Moist/[place]ck: Reports: Supple Lungs: Reports: Clear to Auscultation, Normal Respiratory Effort Cardiovascular: Reports: Regular Rate, Regular Rhythm GI/Abdominal Exam: Normal Bowel Sounds, Soft, Non-Tender, No Organomegaly, No Distention, No Abnormal Bruit, No Mass, Pelvis Stable Rectal (Female) Exam: Deferred Back Exam: Reports: Normal Inspection Extremities: Normal Inspection, Normal Range of Motion, Non-Tender, No Pedal Edema, Normal Capillary Refill Skin: Reports: Warm, Dry, Intact Neurological: Reports: No New Focal Deficit Psy/Mental Status: Reports: Agitated
[2018-05-03 10:20] VITALS: BP 92/50
== END 2018-05-03 11:05 | disposition critical access hospital (66) ==
LOC: LL.ED 12:50 → LL.MS 14:15
PROVIDERS: ADMIT Family Medicine; ATTEND Family Medicine
DX: R07.89 Other chest pain (principal); E66.9 Obesity, unspecified; F17.210 Nicotine dependence, cigarettes, uncomplicated; R00.1 Bradycardia, unspecified; F41.8 Other specified anxiety disorders; J43.1 Panlobular emphysema; K21.9 Gastro-esophageal reflux disease without esophagitis; Z79.82 Long term (current) use of aspirin; Z79.899 Other long term (current) drug therapy; Z91.09 Other allergy status, other than to drugs and biological substances; Z88.5 Allergy status to narcotic agent; Z88.2 Allergy status to sulfonamides; Z88.8 Allergy status to other drugs, medicaments and biological substances; Z68.30 Body mass index [BMI] 30.0-30.9, adult
CPT/HCPCS: 36415; 71045; 80053; 80061; 82272; 82550; 82553; 83036; 83605; 83735; 83880; 84443; 84484; 84550; 85025; 85379; 85610; 85730; 87338; 93005; 96374; 99285; A9270; J7050; J7120; S0028

== ENCOUNTER 2020-08-04 18:02 | Emergency (ER) | payer OTHER, BC ==
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
[2020-08-04 19:09] LABS: CHLORIDE,CL 105 mmol/L (98-107); SODIUM,NA 141 mmol/L (136-145)
[2020-08-04 19:16] LABS: BARBITURATE SCREEN,URINE NEGATIVE (NEGATIVE); BENZODIAZEPINES SCREEN,URINE NEGATIVE (NEGATIVE); EDDP,URINE SCREEN NEGATIVE (NEGATIVE); TCA SCREEN,URINE NEGATIVE (NEGATIVE); THC SCREEN,URINE 50 NG/ML NEGATIVE (NEGATIVE)
[2020-08-04] MEDS: Ketorolac 30 MG/ML SDV IVPUSH ONE (20:25)
[2020-08-04] MEDS: traMADol 50 MG Tab PO ONE (20:26)
[2020-08-04] MEDS: Cyclobenzaprine 10 MG Tab PO ONE (20:26)
== END 2020-08-04 21:15 | disposition home or self-care (01) ==
LOC: LL.ED 18:02
DX: M25.531 Pain in right wrist (principal); K21.9 Gastro-esophageal reflux disease without esophagitis; E66.9 Obesity, unspecified; Z88.5 Allergy status to narcotic agent; Z88.2 Allergy status to sulfonamides; Z91.09 Other allergy status, other than to drugs and biological substances; Z88.8 Allergy status to other drugs, medicaments and biological substances; Z79.82 Long term (current) use of aspirin; Z79.899 Other long term (current) drug therapy; Z90.49 Acquired absence of other specified parts of digestive tract; Z90.710 Acquired absence of both cervix and uterus; Z87.891 Personal history of nicotine dependence; V43.52XA Car driver injured in collision with other type car in traffic accident, initial encounter
CPT/HCPCS: 36415; 70450; 72125; 73020-LT; 73100-RT; 80053; 80305-QW; 80307; 81001; 83605; 83735; 85025; 96374; 99284; 99284-25; A9270-GY; J1885

== ENCOUNTER 2023-05-12 15:34 | Emergency (ER) | payer BC ==
[2023-05-12 16:03] LABS: BASOPHILS ABSOLUTE AUTO 0.01 K/uL (0.00-0.20); BASOPHILS PERCENT AUTO 0.1 % (0.0-2.0); EOSINOPHILS ABSOLUTE AUTO 0.11 K/uL (0.00-0.50); EOSINOPHILS PERCENT AUTO 1.1 % (0.0-5.0); HEMATOCRIT 44.9 % (34.0-46.0); HEMOGLOBIN 14.7 g/dL (11.7-15.5); LYMPHOCYTES ABSOLUTE AUTO 2.18 K/uL (0.50-3.50); LYMPHOCYTES PERCENT AUTO 22.3 % (10.0-50.0); MEAN CORPUSCULAR HEMOGLOBIN 28.5 pg (28.2-33.3); MEAN CORPUSCULAR HGB CONC 32.7 g/dL (31.7-36.0); MONOCYTES ABSOLUTE AUTO 0.63 K/uL (0.00-1.00); MONOCYTES PERCENT AUTO 6.4 % (2.0-14.0); NEUTROPHILS ABSOLUTE AUTO 6.86 K/uL (1.40-7.00); NEUTROPHILS PERCENT AUTO 70.1 % (45.0-80.0); PLATELET COUNT,PLT 180 K/uL (150-350); RED BLOOD CELL COUNT 5.16 M/uL (3.77-5.09); RED CELL DISTRIBUTION WIDTH 13.6 % (11.2-14.1); WHITE BLOOD CELL COUNT,WBC 9.8 K/uL (4.0-10.2)
[2023-05-12 16:13] LABS: ANION GAP 5.7 meq/L (7-15); BLOOD UREA NITROGEN,BUN 20 mg/dL (7-18); CALCIUM 9.2 mg/dL (8.5-10.1); CARBON DIOXIDE,CO2 28.3 mmol/L (21.0-32.0); CHLORIDE,CL 106 mmol/L (98-107); CREATININE 0.82 mg/dL (0.51-1.17); ESTIMATED GFR 89 mL/min (>=60); GLUCOSE RANDOM 86 mg/dL (70-99); SODIUM,NA 140 mmol/L (136-145)
[2023-05-12] MEDS ORDERED: Take Home: Cephalexin 500 MG Cap, 6 Cap Pack PO ONE (16:24)
[2023-05-12] MEDS ORDERED: predniSONE 20 MG Tab PO ONE (16:25)
== END 2023-05-12 16:40 | disposition home or self-care (01) ==
LOC: LL.ED 15:34
DX: M79.642 Pain in left hand (principal); E66.9 Obesity, unspecified; Z68.30 Body mass index [BMI] 30.0-30.9, adult; Z91.048 Other nonmedicinal substance allergy status; Z72.0 Tobacco use; Z88.5 Allergy status to narcotic agent; Z88.2 Allergy status to sulfonamides; Z88.8 Allergy status to other drugs, medicaments and biological substances
CPT/HCPCS: 36415; 73130-LT; 80048; 84550; 85025; 85379; 99283; 99284; A9270-GY; J7512